=== PATIENT | male | born 2000 | race Caucasian/White ===

== ENCOUNTER 2021-02-09 21:14 | Emergency (ER) | payer OTHER ==
[2021-02-09 21:32] VITALS: BP 148/100; PULSE 73; TEMP 98.2; BMI 34.7
[2021-02-10] MEDS ORDERED: ACETAMINOPHEN 325 MG TABLET (FP) PO ONE (00:13)
== END 2021-02-10 00:57 | disposition home or self-care (01) ==
LOC: JER 21:14
DX: R51.9 Headache, unspecified (principal)
CPT/HCPCS: 99283-25

== ENCOUNTER 2022-10-30 20:43 | Emergency (ER) | payer OTHER ==
[2022-10-30 21:13] VITALS: RESP 18; TEMP 98.3; BMI 31.8
[2022-10-30] MEDS ORDERED: ACETAMINOPHEN 1000 MG/100 ML BAG IVPB ONE (21:48)
[2022-10-30] MEDS ORDERED: SODIUM CHLORIDE 1,000 ML IV STA (21:48)
[2022-10-30] MEDS ORDERED: LIDOCAINE 5% TOPICAL PATCH TP ONE (21:48)
[2022-10-30] MEDS ORDERED: ACETAMINOPHEN INJECTION 100 ML IVPB ONE (21:51)
[2022-10-30] MEDS ORDERED: LIDOCAINE 5% TOPICAL PATCH ONE (21:51)
[2022-10-30] MEDS ORDERED: LIDOCAINE PATCH REMOVAL MC SCH (22:00)
[2022-10-30 22:23] LABS: BASO % 0.4 % (0-2.0); EOS % 1.2 % (0-4.5); HEMOGLOBIN 17.3 GM/dL (11.7-16.9); LYMPH % 22.6 % (8-40); MCH 27.2 pg (25.7-33.7); MCHC 33.9 g/dl (32.0-35.9); MEAN CELL VOLUME 80.1 fl (80-96); MEAN PLT VOLUME 8.2 fl (7.5-11.1); MONO % 6.7 % (3.8-10.2); NEUT % 69.1 % (42.8-82.8); PLATELET COUNT 242 10^3/uL (134-434); RBC 6.36 M/mm3 (4.00-5.60); RDW 13.3 % (11.9-15.9); WHITE BLOOD COUNT 9.3 K/mm3 (4.0-10.0)
[2022-10-30 22:59] LABS: POTASSIUM 4.4 mmol/L (3.5-5.1)
[2022-10-30 23:01] LABS: CALCIUM 9.5 mg/dL (8.5-10.1)
[2022-10-30 23:02] LABS: ALBUMIN 4.2 g/dl (3.4-5.0); BLOOD UREA NITROGEN 11.4 mg/dL (7-18)
[2022-10-30 23:06] LABS: BILIRUBIN,TOTAL 0.6 mg/dL (0.2-1)
[2022-10-30 23:07] LABS: TOT PROT 7.7 g/dl (6.4-8.2)
[2022-10-31 00:15] VITALS: BP 128/76; PULSE 88
== END 2022-10-31 00:15 | disposition home or self-care (01) ==
LOC: JER 20:43
PROC: 3E033NZ Introduction of Analgesics, Hypnotics, Sedatives into Peripheral Vein, Percutaneous Approach (ICD-10-PCS; principal; 2022-10-30)
PROC: 3E0337Z Introduction of Electrolytic and Water Balance Substance into Peripheral Vein, Percutaneous Approach (ICD-10-PCS; 2022-10-30)
DX: R07.89 Other chest pain (principal); R06.02 Shortness of breath; R51.9 Headache, unspecified; R42 Dizziness and giddiness; R00.0 Tachycardia, unspecified; Z20.822 Contact with and (suspected) exposure to COVID-19
CPT/HCPCS: 0241U-QW; 36415; 71045-TC-FY; 80053; 84484; 85025; 85379; 93005; 93010; 99285-25

== ENCOUNTER 2023-05-05 20:32 | Emergency (ER) | payer OTHER ==
[2023-05-05 20:37] VITALS: BP 138/88; PULSE 101; RESP 19; TEMP 98.2; BMI 31.4
[2023-05-05] MEDS ORDERED: AMOXICILLIN 250 MG CAPSULE ONE (22:52)
[2023-05-05] MEDS: OFLOXACIN 0.3% OTIC SOLUTION 5 ML BOTTLE AU ONE (23:09)
[2023-05-05] MEDS: AMOXICILLIN 500 MG CAPSULE (FP) PO ONE (23:09)
== END 2023-05-05 23:50 | disposition home or self-care (01) ==
LOC: JER 20:32 → JERFT 20:32
DX: J02.9 Acute pharyngitis, unspecified (principal); H66.003 Acute suppurative otitis media without spontaneous rupture of ear drum, bilateral; H92.02 Otalgia, left ear; R05.9 Cough, unspecified; R09.89 Other specified symptoms and signs involving the circulatory and respiratory systems; Z20.822 Contact with and (suspected) exposure to COVID-19
CPT/HCPCS: 0241U-QW; 99283-25